=== PATIENT | female | born 1950 | race Two or more races ===

== ENCOUNTER → 2019-04-28 | Outpatient (CLI) | payer OTHER | END | disposition home or self-care (01) | LOC: MAMO-SONO 04-27 09:45 | DX: I70.0 Atherosclerosis of aorta (principal); M43.07 Spondylolysis, lumbosacral region; Z12.31 Encounter for screening mammogram for malignant neoplasm of breast; M81.0 Age-related osteoporosis without current pathological fracture ==

== ENCOUNTER 2019-05-04 11:12 | Outpatient (CLI) | payer OTHER | END 2019-05-04 11:21 | disposition home or self-care (01) | LOC: NUCLEAR 11:12 | DX: M81.0 Age-related osteoporosis without current pathological fracture (principal); Z12.31 Encounter for screening mammogram for malignant neoplasm of breast ==